=== PATIENT | female | born 1945 | race Caucasian/White ===

== ENCOUNTER 2016-03-20 12:02 | Inpatient (IN) | payer OTHER, BC ==
[2016-03-20 12:39] LABS: % IMMATURE GRANULYOCYTES 0.3 % (0.0-1.1); ABSOLUTE IMMATURE GRANULOCYTES 0.03 10^3/uL (0.00-0.10); ADD DIFF? NO; ADD MORPH? NO; ADD SCAN? NO; ATYPICAL LYMPHOCYTE FLAG 0 (0-99); FRAGMENT RBC FLAG 0 (0-99); HEMATOCRIT 34.8 % (38.0-47.0); HEMOGLOBIN 11.9 g/dL (12.6-16.3); LEFT SHIFT FLG 0 (0-99); LIPEMIA HEMOLYSIS FLAG 90 (0-99); MEAN CELL HEMOGLOBIN 30.7 pg (27.9-34.1); MEAN CELL HEMOGLOBIN CONCENTR. 34.2 g/dL (32.4-36.7); MEAN CELL VOLUME 89.7 fL (81.5-99.8); MEAN PLATELET VOLUME 9.7 fL (8.7-11.7); PLATELET CLUMPS FLAG 10 (0-99); PLATELET COUNT 289 10^3/uL (150-400); RED BLOOD CELL COUNT 3.88 10^6/uL (4.18-5.33); RED CELL DISTRIBUTION WIDTH 12.8 % (11.5-15.2)
--- NOTE | 2016-03-20 12:52 | EDPHY ---
H & P Stated Complaint: sob Time Seen by Provider: 03/20/16 12:38 HPI/ROS: CHIEF COMPLAINT: Cough HISTORY OF PRESENT ILLNESS: The patient is a 70 year old female presenting with persistent cough for the past 12 days. The patient was in [place] and developed sore throat and cough. Upon returning her coughing has worsened. She has a productive cough with yellow sputum. Over the past 2 days she's been febrile with temperature reaching 103. Yesterday she developed shortness of breath. She reports chest pain secondary to cough. She was seen at Urgent Care earlier today , O2 saturation on room air was 85%. The patient received a flu shot this year. No vomiting, normal appetite, no pleruitic pain. Complains of generalized weakness and fatigue. REVIEW OF SYSTEMS: Aside from elements discussed in the HPI, a comprehensive 10-point review of systems was reviewed and is negative. PAST MEDICAL HISTORY: Patient reports bronchiectasis. SOCIAL HISTORY: and physician friend at bedside. VITAL SIGNS: Reviewed by me. Temp 39.0 Sat 92% on 4 liters. GENERAL: Well-developed, well-nourished, diaphoretic. HEENT: Atraumatic. Eyes: No icterus, no injection. Mouth: slightly dry mucous membranes. No erythema or lesions. Neck: supple with no adenopathy. LUNGS: Left upper lobe crackles. Right sided rhonchi and crackles. Wheezes throughout. CARDIAC: Tachycardic, no rubs, murmurs or gallops. ABDOMEN: Soft, nontender, nondistended, bowel sounds normal. BACK: No CVA tenderness. EXTREMITIES: No trauma. No edema. Range of motion is normal throughout. NEURO: Alert and oriented, grossly nonfocal. SKIN: Warm and dry, no rash. PSYCHIATRIC: Normal mentation, no agitation. Portions of this note were transcribed by a medical researcher. I personally performed a history, physical exam, medical decision making, and confirmed accuracy of information the transcribed note. Source: Patient - Personal History Current Tetanus Diphtheria and Acellular Pertussis (TDAP): Yes - Medical/Surgical History Hx Asthma: No Hx Chronic Respiratory Disease: No Hx Diabetes: No Hx Cardiac Disease: No Hx Renal Disease: No Hx Cirrhosis: No Hx Alcoholism: No Hx HIV/AIDS: No Hx Splenectomy or Spleen Trauma: No - Social History Smoking Status: Never smoked Constitutional: Initial Vital Signs Temperature (C) 39 C H 03/20/16 12:18 Heart Rate 99 03/20/16 12:18 Respiratory Rate 20 03/20/16 12:18 Blood Pressure 124/76 H 03/20/16 12:18 O2 Sat (%) 92 03/20/16 12:18 O2 Delivery Mode Nasal Cannula O2 (L/minute) 3 Allergies/Adverse Reactions: No Known Drug Allergies Allergy (Verified 03/20/16 12:18) Home Medications: Medication Instructions Recorded Benzonatate [Tessalon Pearles (RX)] 100 mg PO DAILY PRN 03/20/16 Gabapentin [Neurontin 300 MG (*)] 600 mg PO HS PRN 03/20/16 HYDROcodone/HOMATROPINE HYCODA 1 tsp PO Q4-6PRN PRN 03/20/16 [Hycodan Syrup (*)] Herbals/Supplements -Info Only 1 ea PO DAILY 03/20/16 Ibuprofen [Motrin (*)] 200 mg PO DAILY PRN 03/20/16 Zolpidem Tartrate [Ambien 5MG (*)] 5 mg PO HS PRN 03/20/16 Medical Decision Making - Diagnostics Imaging: Study: X-ray of the chest was obtained. Results: Multifocal consolidation, most prominent in the right middle lobe, consistent with pneumonia. Images were interpreted by the radiologist, Dr. Mendoza. I viewed the images myself on the PACS system. ED Course/Re-evaluation: Severe Sepsis Note The patient presents to the ED with pneumonia identified as an acute infection. The patient did have evidence of end-organ dysfunction and met criteria for severe sepsis. This condition was identified by myself at 12:52pm. The patient s vital signs are BP 124/76, HR 99, RR 20, SaO2 85 on RA, temp 39. The patient has a venous lactic acid performed within 3 hours of the identification of severe sepsis which was found to be 1.5. The patient has blood cultures drawn and received Ceftriaxone and Azithromycin IV, per the severe sepsis treatment protocol. 70 year old with respiratory symptoms for 12 days, worse over past 3-4 days. Febrile to 103. Hypoxic to 85% on room air on arrival. Received 30cc/kg bolus, O2 by n/c. Antibiotics started. Lactic acid 1.5 Admit to hospital medicine. No old cxr in our system; patient reports hx of bronchiectasis. Differential Diagnosis: Differential diagnosis for the patient's cough and shortness of breath was considered including but not limited to viral versus bacterial bronchitis, asthma, COPD, pulmonary emboli, upper respiratory infection, lower respiratory infection, and bronchospasm. Consult/Admit Bed Type: Meli Burrell - Data Points Laboratory Results: Laboratory Results 03/20/16 12:06 03/20/16 12:06 Microbiology Results: MICROBIOLOGY 03/20/16 13:30 Blood Blood Culture - Preliminary Medications Given: Discontinued Medications Azithromycin 500 mg/ Dextrose 255 mls @ 255 mls/hr IV EDNOW ONE PRN Reason: Protocol Stop: 03/20/16 15:22 Last Admin: 03/20/16 17:24 Dose: 255 mls Ceftriaxone Sodium 2 gm/ (Dextrose) 50 mls @ 100 mls/hr IV EDNOW ONE PRN Reason: Protocol Stop: 03/20/16 14:51 Last Admin: 03/20/16 16:36 Dose: 50 mls Sodium Chloride (Ns *For Sepsis Order Set Only*) 1,973 ml IV EDNOW ONE Stop: 03/20/16 13:08 Last Admin: 03/20/16 13:14 Dose: 1,973 ml Departure - Departure Disposition: [facility] Inpatient Acute Clinical Impression: Pneumonia, Sepsis Condition: Fair Report Scribed for: Melia Ramos Report Scribed by: Alejandrina Meza Date of Report: 03/20/16 Time of Report: 12:52
[2016-03-20] MEDS ORDERED: NS 1,000 ML BAG *FOR SEPSIS ORDER SET ONLY IV ONE (13:07)
[2016-03-20 13:27] LABS: ANION GAP 9 mEq/L (8-16); CALCIUM 8.1 mg/dL (8.5-10.4); CARBON DIOXIDE 26 mEq/l (22-31); CHLORIDE 98 mEq/L (97-110); CREATININE 0.7 mg/dL (0.6-1.0); GLOMERULAR FILTRATION RATE > 60; GLUCOSE 140 mg/dL (70-100); POTASSIUM 3.5 mEq/L (3.5-5.2); SODIUM 133 mEq/L (134-144)
[2016-03-20 13:35] LABS: APTT 30.3 SEC (23.0-38.0); INR 1.15 (0.83-1.16); PROTIME(PATIENT) 14.7 SEC (12.0-15.0)
[2016-03-20 13:49] LABS: BILIRUBIN,TOTAL 0.7 mg/dL (0.1-1.4)
[2016-03-20] MEDS ORDERED: cefTRIAXone 2 GM in D5W 50 ML IV ONE (14:22)
[2016-03-20] MEDS ORDERED: AZITHROMYCIN IV 500 MG in D5W 250 ML IV ONE (14:23)
--- NOTE | 2016-03-20 14:33 | DX ---
PA and lateral chest History: Cough, cold, possible pneumonia. Comparison: None available. Findings: There is diffuse peribronchial thickening with patchy consolidation in the lingula and rig ht upper lobe and denser consolidation in the right middle lobe. Heart size is normal. S-shaped curva ture of the spine is noted. Impression: Multifocal consolidation, most prominent in the right middle lobe, consistent with pneum onia. Radiographic follow-up is recommended to resolution.
[2016-03-20 14:59] LABS: COLOR PALE YELLOW; LEUKOCYTE ESTERASE,URINE NEGATIVE (NEGATIVE); NITRITE,URINE NEGATIVE (NEGATIVE)
[2016-03-20 15:12] LABS: BACTERIA TRACE /hpf (NONE SEEN)
[2016-03-20 15:13] LABS: WBC,URINE NONE SEEN /hpf (0-3)
[2016-03-20] MEDS ORDERED: ONDANSETRON DISINTEGRATING 4 MG TAB PO PRN (15:43)
[2016-03-20] MEDS ORDERED: oxyCODONE IR 5 MG TAB PO PRN (15:43)
[2016-03-20] MEDS ORDERED: ALBUTEROL 3 ML DEYVIAL IH PRN (15:43)
[2016-03-20] MEDS ORDERED: PROMETHAZINE HCL 25 MG/ML INJ IVP PRN (15:43)
[2016-03-20] MEDS ORDERED: ONDANSETRON 4 MG/2 ML VIAL IVP PRN (15:43)
[2016-03-20] MEDS ORDERED: IBUPROFEN 200 MG TAB PO PRN (15:45)
[2016-03-20] MEDS ORDERED: GABAPENTIN 300 MG CAP PO PRN (15:45)
[2016-03-20] MEDS: HYDROCODONE/HOMATROPINE HYCODAN 5 ML UDL PO PRN ×2 (16:35→22:24)
[2016-03-20] MEDS: NS 1,000 ML IV SCH (16:35)
[2016-03-20] MEDS: BENZONATATE 100 MG CAP PO PRN (17:35)
[2016-03-20] MEDS: ACETYLCYSTEINE 10% 30 ML VIAL IH SCH ×2 (18:09→22:05)
[2016-03-20] MEDS: IPRATROPIUM/ALBUTEROL 3 ML DEYVIAL IH SCH ×2 (18:11→22:05)
[2016-03-20] MEDS: HYDROCODONE/APAP 5/325 TAB PO PRN ×2 (19:22→22:24)
[2016-03-20] MEDS: CEPACOL LOZENGE PO PRN ×2 (19:25→22:25)
--- NOTE | 2016-03-20 21:37 | GHP ---
[f rep st] HISTORY AND PHYSICAL DATE OF ADMISSION: 03/20/2016 CHIEF COMPLAINT: Cough and fevers. HISTORY: This is a 70-year-old female who has a past medical history that includes remote issues wit h bronchiectasis following a respiratory infection obtained in [place] who presents with 12 days of upp er respiratory symptoms that have been progressive over the last several days. The patient is visiti chau here from [place], [place]. She is staying with a friend who is a physician. She has been dealin g with a cough productive of yellow sputum with shortness of breath with exertion. Over the last 2-3 days, she has also developed fever as high as 103.5 noted at home. She has not had similar issues i n the past. She does not have any chronic respiratory issues. She has been around other people who have had similar issues but not quite as severe. PAST MEDICAL HISTORY: None. SOCIAL HISTORY: Patient is a never smoker. She is and is accompanied here by her . She is living in [place], [place] and is accompanied here by a physician friend with whom she is stay ing with in [place]. PAST SURGICAL HISTORY: Meniscectomy and lung biopsy. REVIEW OF SYSTEMS: 10-point review of systems obtained, negative except as per HPI. MEDICATIONS: At home include: 1. Gabapentin. 2. Hycodan syrup. 3. Tessalon Perles. 4. Ibuprofen. 5. Zolpidem. ALLERGIES: No known drug allergies. PHYSICAL EXAMINATION: VITAL SIGNS: BP 137/79, heart rate 90, respiratory rate 18, O2 sat 93% on 1-1 /2 L, temperature 37.5 with a T-max of 39. She was noted to be in the low 80s on room air on initial arrival to the ER. IMAGING STUDIES: Chest x-ray. This was reviewed and interpreted independently by myself and shows m ultifocal consolidation most prominent in the right middle lobe consistent with pneumonia. LABORATORY STUDIES: White blood cell count of 11, hematocrit of 34.8, platelets of 289. Lactic acid is 1.5. Chemistry notable for a glucose of 140 and a sodium of 133. UA was unremarkable. Influenza swab was negative. ASSESSMENT AND PLAN: This is a 70-year-old female, no significant past medical history, presenting w ith community-acquired pneumonia. 1. Community-acquired pneumonia, relatively severe, with associated hypoxic respiratory failure. Sh e does have evidence of sepsis. She has been started on ceftriaxone and azithromycin which will be c ontinued for now. Blood cultures have been obtained and are pending. We will also obtain sputum cul tures as well as Legionella and Streptococcus pneumoniae urinary antigens. 2. Acute hypoxic respiratory failure in the setting of above. She is now saturating well on 2-3 L o f oxygen. She does not have any underlying lung issues, though she did have an issue with a severe r espiratory infection status post a trip to [facility] many years ago for which she underwent a lung biopsy . Treatment is as per above. 3. Sepsis. Patient with leukocytosis, fever, and tachycardia in the setting of pneumonia. She does not have evidence of severe sepsis or end-organ dysfunction. Treatment is as per above. 4. Anemia. The patient has mild anemia that we will trend while inhouse. Likely can defer this to the outpatient setting, and we recommend colonoscopy if she has not had one in the recent past. 5. Hyponatremia, mild and likely secondary to hypovolemic hyponatremia in the setting of being ill f or many days. Will repeat BMP in the morning. 6. Hyperglycemia, likely stress response in the setting of acute infectious process. Again, we will repeat a BMP in the morning. DISPOSITION: 1. Inpatient status. She does have high risk presenting issues requiring inpatient stay and IV anti biotics. 2. Full code. 3. Patient is new to my care. Old records are reviewed and summarized as per HPI and past medical h istory. Care plan reviewed with the ER physician, including plans for admission. Further history ob tained from patient's and physician friend present at bedside. /[id number]/MODL
[2016-03-20] MEDS: ZOLPIDEM TARTRATE 5 MG TAB PO PRN (22:24)
[2016-03-20] MEDS: ACETAMINOPHEN 325 MG TAB PO PRN (23:54)
[2016-03-21] MEDS: HYDROCODONE/APAP 5/325 TAB PO PRN (03:59)
[2016-03-21] MEDS: HYDROCODONE/HOMATROPINE HYCODAN 5 ML UDL PO PRN (04:00)
[2016-03-21 04:45] LABS: ANION GAP 9 mEq/L (8-16); CALCIUM 7.7 mg/dL (8.5-10.4); CARBON DIOXIDE 25 mEq/l (22-31); CHLORIDE 104 mEq/L (97-110); CREATININE 0.6 mg/dL (0.6-1.0); GLOMERULAR FILTRATION RATE > 60; GLUCOSE 104 mg/dL (70-100); POTASSIUM 3.9 mEq/L (3.5-5.2); SODIUM 138 mEq/L (134-144)
[2016-03-21 05:02] LABS: % IMMATURE GRANULYOCYTES 0.4 % (0.0-1.1); ABSOLUTE IMMATURE GRANULOCYTES 0.04 10^3/uL (0.00-0.10); ADD DIFF? NO; ADD MORPH? NO; ADD SCAN? NO; ATYPICAL LYMPHOCYTE FLAG 0 (0-99); FRAGMENT RBC FLAG 10 (0-99); HEMATOCRIT 31.4 % (38.0-47.0); HEMOGLOBIN 10.5 g/dL (12.6-16.3); LEFT SHIFT FLG 0 (0-99); LIPEMIA HEMOLYSIS FLAG 80 (0-99); MEAN CELL HEMOGLOBIN CONCENTR. 33.4 g/dL (32.4-36.7); MEAN CELL VOLUME 92.6 fL (81.5-99.8); MEAN PLATELET VOLUME 9.9 fL (8.7-11.7); PLATELET CLUMPS FLAG 10 (0-99); PLATELET COUNT 280 10^3/uL (150-400); RED BLOOD CELL COUNT 3.39 10^6/uL (4.18-5.33); RED CELL DISTRIBUTION WIDTH 13.2 % (11.5-15.2)
[2016-03-21] MEDS: ACETYLCYSTEINE 10% 30 ML VIAL IH SCH ×4 (06:01→21:49)
[2016-03-21] MEDS: IPRATROPIUM/ALBUTEROL 3 ML DEYVIAL IH SCH ×4 (06:01→21:49)
[2016-03-21] MEDS: NS 1,000 ML IV SCH ×2 (06:21→15:02)
[2016-03-21] MEDS: ACETAMINOPHEN 325 MG TAB PO PRN ×3 (09:06→20:21)
[2016-03-21] MEDS: AZITHROMYCIN IV 500 MG in D5W 250 ML IV SCH (09:06)
[2016-03-21] MEDS: ENOXAPARIN 40 MG/0.4 ML SYR SC SCH (09:07)
[2016-03-21] MEDS: BENZONATATE 100 MG CAP PO PRN (15:46)
--- NOTE | 2016-03-21 18:46 | HOSPPROG ---
Hospitalist Progress Note Assessment/Plan: DIAGNOSIS: # ACUTE ON CHRONIC RESPIRATORY FAILURE # ACUTE COMMUNITY-ACQUIRED PNEUMONIA # ACUTE MILD SEPSIS WITHOUT ANY EVIDENCE OF END-ORGAN DAMAGE PLANS: -Continue current antibiotics -continue bronchodilators -continue general supportive care -increase activity as able -DT prophylaxis measures in place SUBJECTIVE: The patient notices little difference in her symptoms overall so far. She does notice some decrease in cough and malaise. She is perhaps slightly less short of breath. OBJECTIVE Vitals reviewed: Continues have fevers but the vital signs are otherwise stable in normal range Exam: alert oriented Looks fatigued overall with mild respiratory distress skin warm dry color ok lungs diffuse wheeze with some rales at the right lower lobe posteriorly heart regular abd soft nondistended nontender, bowel sounds present limbs warm, no edema iv site ok Objective: Vital Signs Temp Pulse Resp BP Pulse Ox 38.8 C H 86 20 130/71 H 96 03/21/16 15:34 03/21/16 15:34 03/21/16 15:34 03/21/16 15:34 03/21/16 15:34 Microbiology 03/20/16 22:43 - Final Sputum, Expectorated Sputum Culture - Final Laboratory Results 03/21/16 03:40 03/21/16 03:40 03/20/16 03/21/16 03/22/16 06:59 06:59 06:59 Intake Total 5106 400 Output Total 300 700 Balance 4806 -300 PT 14.7 SEC (12.0-15.0) 03/20/16 12:00 INR 1.15 (0.83-1.16) 03/20/16 12:00 ICD10 Worksheet Patient Problems: Problems Problem Status Diagnosed Pneumonia Acute
[2016-03-22] MEDS: HYDROCODONE/HOMATROPINE HYCODAN 5 ML UDL PO PRN ×2 (04:28→21:39)
[2016-03-22] MEDS: NS 1,000 ML IV SCH (04:29)
[2016-03-22] MEDS: ACETYLCYSTEINE 10% 30 ML VIAL IH SCH ×4 (06:19→20:17)
[2016-03-22] MEDS: IPRATROPIUM/ALBUTEROL 3 ML DEYVIAL IH SCH ×4 (06:19→20:17)
[2016-03-22] MEDS: AZITHROMYCIN IV 500 MG in D5W 250 ML IV SCH (07:50)
[2016-03-22] MEDS: ENOXAPARIN 40 MG/0.4 ML SYR SC SCH (07:53)
[2016-03-22] MEDS: ACETAMINOPHEN 325 MG TAB PO PRN (13:19)
--- NOTE | 2016-03-22 17:40 | HOSPPROG ---
Hospitalist Progress Note Assessment/Plan: DIAGNOSIS: # ACUTE ON CHRONIC RESPIRATORY FAILURE, SUSPECT COPD # ACUTE COMMUNITY-ACQUIRED PNEUMONIA # ACUTE MILD SEPSIS WITHOUT ANY EVIDENCE OF END-ORGAN DAMAGE PLANS: -Continue current antibiotics, follow cultures -continue bronchodilators -continue general supportive care -increase activity as able -DT prophylaxis measures in place SUBJECTIVE: Today less cough and better energy. She is eating little bit better. She is a little bit less short of breath but still requiring oxygen and gets very short of breath with minimal activity OBJECTIVE Vitals reviewed: Continues have fevers but not as high as yesterday, other vitals stable Exam: alert oriented Looks fatigued overall with mild respiratory distress skin warm dry color ok lungs unchanged, diffuse wheeze with some rales at the right lower lobe posteriorly heart regular abd soft nondistended nontender, bowel sounds present limbs warm, no edema iv site ok Objective: Vital Signs Temp Pulse Resp BP Pulse Ox 38.1 C 81 20 130/72 H 93 03/22/16 12:00 03/22/16 16:26 03/22/16 12:00 03/22/16 12:00 03/22/16 16:26 Microbiology 03/21/16 12:18 - Final Sputum, Expectorated Laboratory Results 03/21/16 03:40 03/21/16 03:40 03/21/16 03/22/16 03/23/16 06:59 06:59 06:59 Intake Total 5106 2369 Output Total 300 1550 300 Balance 4806 819 -300 PT 14.7 SEC (12.0-15.0) 03/20/16 12:00 INR 1.15 (0.83-1.16) 03/20/16 12:00 ICD10 Worksheet Patient Problems: Problems Problem Status Diagnosed Pneumonia Acute
[2016-03-22] MEDS: GABAPENTIN 600 MG PO PRN (21:31)
[2016-03-23] MEDS: ACETYLCYSTEINE 10% 30 ML VIAL IH SCH ×4 (05:07→21:17)
[2016-03-23] MEDS: IPRATROPIUM/ALBUTEROL 3 ML DEYVIAL IH SCH ×4 (05:07→21:17)
[2016-03-23 06:09] LABS: % IMMATURE GRANULYOCYTES 0.6 % (0.0-1.1); ABSOLUTE IMMATURE GRANULOCYTES 0.05 10^3/uL (0.00-0.10); ADD DIFF? NO; ADD MORPH? NO; ADD SCAN? NO; ATYPICAL LYMPHOCYTE FLAG 70 (0-99); FRAGMENT RBC FLAG 0 (0-99); HEMOGLOBIN 10.6 g/dL (12.6-16.3); LEFT SHIFT FLG 0 (0-99); LIPEMIA HEMOLYSIS FLAG 90 (0-99); MEAN CELL HEMOGLOBIN 31.5 pg (27.9-34.1); MEAN CELL HEMOGLOBIN CONCENTR. 34.2 g/dL (32.4-36.7); MEAN CELL VOLUME 92.3 fL (81.5-99.8); MEAN PLATELET VOLUME 9.6 fL (8.7-11.7); PLATELET CLUMPS FLAG 0 (0-99); PLATELET COUNT 305 10^3/uL (150-400); RED BLOOD CELL COUNT 3.36 10^6/uL (4.18-5.33); RED CELL DISTRIBUTION WIDTH 13.2 % (11.5-15.2)
[2016-03-23] MEDS: AZITHROMYCIN IV 500 MG in D5W 250 ML IV SCH (08:16)
[2016-03-23] MEDS: ENOXAPARIN 40 MG/0.4 ML SYR SC SCH (09:54)
--- NOTE | 2016-03-23 10:57 | HOSPPROG ---
Hospitalist Progress Note Assessment/Plan: DIAGNOSIS: # ACUTE ON CHRONIC RESPIRATORY FAILURE, SUSPECT COPD # ACUTE COMMUNITY-ACQUIRED PNEUMONIA # ACUTE MILD SEPSIS WITHOUT ANY EVIDENCE OF END-ORGAN DAMAGE PLANS: -Continue current antibiotics, follow cultures -continue bronchodilators -continue general supportive care -increase activity as able -DT prophylaxis measures in place -check stool for C difficile today SUBJECTIVE: Feels little better overall today, fever symptoms resolved Less cough, slightly better appetite, still very weak with ambulation and some dyspnea they are Has been having frequent loose stools over the past 24 hours OBJECTIVE Vitals reviewed: No more fever, other vitals stable remains on 3 L nasal cannula oxygen at rest Exam: alert oriented Looks fatigued overall with mild respiratory distress skin warm dry color ok lungs better air movement and significantly less rales heart regular abd soft nondistended nontender, bowel sounds present limbs warm, no edema iv site ok Objective: Vital Signs Temp Pulse Resp BP Pulse Ox 36.8 C 84 20 124/75 H 94 03/23/16 07:23 03/23/16 07:23 03/23/16 07:23 03/23/16 07:23 03/23/16 07:23 Microbiology 03/21/16 12:18 - Final Sputum, Expectorated Sputum Culture - Final [facility] Laboratory Results 03/23/16 05:54 03/21/16 03:40 03/22/16 03/23/16 03/24/16 06:59 06:59 06:59 Intake Total 2369 1740 Output Total 1550 300 Balance 819 1440 PT 14.7 SEC (12.0-15.0) 03/20/16 12:00 INR 1.15 (0.83-1.16) 03/20/16 12:00 ICD10 Worksheet Patient Problems: Problems Problem Status Diagnosed Pneumonia Acute Sepsis Acute
[2016-03-23] MEDS: ACETAMINOPHEN 325 MG TAB PO PRN (14:56)
[2016-03-23] MEDS: HYDROCODONE/HOMATROPINE HYCODAN 5 ML UDL PO PRN ×2 (20:39→23:41)
[2016-03-23] MEDS: GABAPENTIN 600 MG PO PRN (21:35)
[2016-03-23] MEDS: BENZONATATE 100 MG CAP PO PRN (23:42)
[2016-03-23] MEDS: ZOLPIDEM TARTRATE 5 MG TAB PO PRN (23:45)
[2016-03-24] MEDS: ACETAMINOPHEN 325 MG TAB PO PRN ×2 (04:41→15:48)
[2016-03-24] MEDS: IPRATROPIUM/ALBUTEROL 3 ML DEYVIAL IH SCH ×4 (06:27→21:35)
[2016-03-24] MEDS: ACETYLCYSTEINE 10% 30 ML VIAL IH SCH ×4 (06:28→21:40)
[2016-03-24] MEDS: AZITHROMYCIN IV 500 MG in D5W 250 ML IV SCH (08:43)
[2016-03-24] MEDS: ENOXAPARIN 40 MG/0.4 ML SYR SC SCH (08:43)
[2016-03-24] MEDS ORDERED: predniSONE 20 MG TAB PO ONE (11:47)
--- NOTE | 2016-03-24 18:18 | HOSPPROG ---
Hospitalist Progress Note Assessment/Plan: DIAGNOSIS: # ACUTE ON CHRONIC RESPIRATORY FAILURE, SUSPECT COPD # ACUTE COMMUNITY-ACQUIRED PNEUMONIA # ACUTE MILD SEPSIS WITHOUT ANY EVIDENCE OF END-ORGAN DAMAGE # CHRONIC SLEEP APNEA ON CPAP PLANS: -She will have family members bring her CPAP and will have her use that here -Will add some prednisone -She has not been using her flutter valve device and I have encouraged her to use that at least hourly -Continue current antibiotics, follow cultures -continue bronchodilators -continue general supportive care -increase activity as able -DT prophylaxis measures in place SUBJECTIVE: feels more fatigued today, not really feeling any better than yesterday overall perhaps slightly worse No worsening of cough or dyspnea She is having chills overnight she now tells me that she has a long history of sleep apnea and uses CPAP at home but has not used her CPAP for 3 weeks; she apparently does have her CPAP with her on this trip OBJECTIVE Vitals reviewed: had fever again during the night, other vitals stable remains on 3 L nasal cannula oxygen at rest Exam: alert oriented Looks fatigued overall with mild respiratory distress skin warm dry color ok lungs better air movement and significantly less rales heart regular abd soft nondistended nontender, bowel sounds present limbs warm, no edema iv site ok C diff titers negative Cultures remain negative Objective: Vital Signs Temp Pulse Resp BP Pulse Ox 37.6 C 101 H 16 138/80 H 92 03/24/16 17:08 03/24/16 17:08 03/24/16 17:08 03/24/16 17:08 03/24/16 17:08 Laboratory Results 03/23/16 05:54 03/21/16 03:40 03/23/16 03/24/16 03/25/16 06:59 06:59 06:59 Intake Total 1740 3700 300 Output Total 300 Balance 1440 3700 300 PT 14.7 SEC (12.0-15.0) 03/20/16 12:00 INR 1.15 (0.83-1.16) 03/20/16 12:00 ICD10 Worksheet Patient Problems: Problems Problem Status Diagnosed Pneumonia Acute Sepsis Acute
[2016-03-24] MEDS: ZOLPIDEM TARTRATE 5 MG TAB PO PRN (22:13)
[2016-03-24] MEDS: HYDROCODONE/HOMATROPINE HYCODAN 5 ML UDL PO PRN (22:13)
[2016-03-24] MEDS: GABAPENTIN 600 MG PO PRN (22:19)
[2016-03-25] MEDS ORDERED: IPRATROPIUM/ALBUTEROL 3 ML DEYVIAL IH PRN (01:03)
[2016-03-25 08:59] VITALS: RESP 16
[2016-03-25] MEDS ORDERED: predniSONE 20 MG TAB PO SCH (09:00)
[2016-03-25] MEDS: ENOXAPARIN 40 MG/0.4 ML SYR SC SCH (09:02)
[2016-03-25] MEDS: AZITHROMYCIN IV 500 MG in D5W 250 ML IV SCH (09:02)
[2016-03-25 16:18] VITALS: BP 129/90; PULSE 76; TEMP 98.4; O2SAT 93
--- NOTE | 2016-03-25 19:12 | PDDCSUM ---
Discharge Summary Discharge Summary: DISCHARGE SUMMARY NOTE DISCHARGE DIAGNOSES: -Acute respiratory failure on chronic hypoxemic respiratory failure -Acute community-acquired pneumonia -Suspected as exacerbation of COPD -1st acute mild sepsis -Obstructive sleep apnea -Chronic bronchiectasis HOSPITAL COURSE SUMMARY: This patient with chronic lung disease multiple etiologies came in with symptoms of acute pneumonia had mild sepsis with acute hypoxemic respiratory failure. She had no evidence of other organ failure. She was admitted the hospital and treated with fluid resuscitation, antibiotics, bronchodilators and steroids. She had ongoing use of her usual CPAP here. Her course was 1 of gradual resolution of her presenting symptoms. By this time she still requiring 3 L of oxygen but is much less short of breath, ambulating much more easily, eating well. She has much improved lung exam, no fever. There been no complications. Cultures have been negative. She has been treated here with empiric antibiotics and will continue 2 more days of empiric antibiotics as an outpatient. She does require home oxygen at this time along with her ongoing CPAP and is on a tapering dose of prednisone. I have added also inhaled bronchodilators with albuterol and Atrovent. She is traveling here from [place]. She will be staying with a local friend who is actually retired physician for the next 2 weeks and then gradually traveling back to [place] where she lives. She will need to have her oxygen levels checked for heading back to [place] where her home was 2000 feet higher than here [place]. MEDICATION CHANGES: Addition of Levaquin, Atrovent, albuterol, tapering prednisone and home oxygen FOLLOW-UP PLAN: Home oxygen therapy She will follow up with her primary care physician upon return to [place], however will return here if she has further acute issues in the meantime. Greater than 35 minutes bedside and care coordination time today
== END 2016-03-25 19:00 | disposition home or self-care (01) | DRG 871 ==
LOC: EDUNIT# → F1N 15:43
PROVIDERS: ADMIT Internal Medicine; ATTEND Internal Medicine
DX: A41.9 Sepsis, unspecified organism (principal); J18.9 Pneumonia, unspecified organism; R65.20 Severe sepsis without septic shock; J96.21 Acute and chronic respiratory failure with hypoxia; J44.1 Chronic obstructive pulmonary disease with (acute) exacerbation; J47.9 Bronchiectasis, uncomplicated; E87.1 Hypo-osmolality and hyponatremia; G47.33 Obstructive sleep apnea (adult) (pediatric)
CPT/HCPCS: 87449-90; 97161-GP; G8978-GP-CJ; G8979-GP-CI; J0456; J0696; J1650; J2405

== ENCOUNTER 2018-04-08 05:42 | Inpatient (IN) | payer OTHER, BC ==
[2018-04-08] MEDS ORDERED: TRANEXAMIC ACID 3,000 MG in NS (SYRINGE) 50 ML IRR ONE (06:00)
[2018-04-08] MEDS ORDERED: ROPIVACAINE 0.2% 80 MG, EPINEPHrine 0.2 MG, KETOROLAC TROMETHAMINE 30 MG in SYRINGE 0 ML IU ONE (06:00)
[2018-04-08] MEDS ORDERED: ACETAMINOPHEN 325 MG TAB PO ONE (06:02)
[2018-04-08] MEDS ORDERED: ceFAZolin 2 GM/DEXTROSE 100 ML IV ONE (06:02)
[2018-04-08] MEDS ORDERED: FAMOTIDINE 20 MG TAB PO ONE (06:02)
[2018-04-08] MEDS ORDERED: DEXAMETHASONE 4 MG/ML VIAL IVP ONE (06:02)
[2018-04-08] MEDS ORDERED: LR 1,000 ML IV ONE (06:03)
[2018-04-08] MEDS ORDERED: ceFAZolin 1 GM/5 ML SYR ONE (06:27)
[2018-04-08] MEDS ORDERED: PROMETHAZINE HCL 25 MG/ML INJ IVP PRN ×2 (07:04→09:49)
[2018-04-08] MEDS ORDERED: HYDROmorphONE/DILAUDID 2 MG/ML INJ IVP PRN (07:04)
[2018-04-08] MEDS ORDERED: fentaNYL 100 MCG/2 ML INJ IVP PRN (07:04)
[2018-04-08] MEDS ORDERED: NALOXONE HCL 0.4 MG/ML INJ IVP PRN ×2 (07:04)
[2018-04-08] MEDS ORDERED: ALBUTEROL 3 ML DEYVIAL IH PRN (07:04)
[2018-04-08] MEDS ORDERED: MIDAZOLAM 2 MG/2 ML VIAL IVP ONE (07:04)
[2018-04-08] MEDS ORDERED: ACETAMINOPHEN 500 MG TAB PO PRN (07:04)
[2018-04-08] MEDS ORDERED: ONDANSETRON 4 MG/2 ML VIAL IVP PRN ×2 (07:04→09:49)
[2018-04-08] MEDS ORDERED: oxyCODONE IR 5 MG TAB PO PRN (07:04)
--- NOTE | 2018-04-08 07:08 | PDANEPAE ---
ANE History of Present Illness L Total Knee ANE Past Medical History - Cardiovascular History Hx Hypertension: No Hx Arrhythmias: No Hx Chest Pain: No Hx Coronary Artery / Peripheral Vascular Disease: No Hx CHF / Valvular Disease: No Hx Palpitations: No Cardiovascular History Comment: RUNS LOW BP. PALPITATIONS - 2 EPISODES 10-12 YRS AGO - NO SXS SINCE - Pulmonary History Hx COPD: No Hx Asthma/Reactive Airway Disease: No Hx Recent Upper Respiratory Infection: No Hx Oxygen in Use at Home: No Hx Sleep Apnea: Yes Sleep Apnea Screening Result - Last Documented: Positive Pulmonary History Comment: MILD BRONCHIECTASIS. PNEUMONIA 2 YRS AGO - ASYMPTOMATIC SINCE - Neurologic History Hx Cerebrovascular Accident: No Hx Seizures: No Hx Dementia: No - Endocrine History Hx Diabetes: No - Renal History Hx Renal Disorders: No Renal History Comment: OCCAS BLADDER INF - Liver History Hx Hepatic Disorders: No - Neurological & Psychiatric Hx Hx Neurological and Psychiatric Disorders: No - Cancer History Hx Cancer: No Cancer History Comment: SQUAMOUS CELLS REMOVED - Congenital Disorder History Hx Congenital Disorders: No - GI History Hx Gastrointestinal Disorders: No - Other Health History Other Health History: NEG - Chronic Pain History Chronic Pain: Yes (L KNEE) - Surgical History Prior Surgeries: TONSILLECTOMY. COLONOSCOPY. MENISCUS L KNEE ANE Review of Systems Review of Systems: - Exercise capacity METS (RN): 5 METS ANE Patient History - Allergies Allergies/Adverse Reactions: No Known Drug Allergies Allergy (Verified 03/20/16 12:18) - Home Medications Home Medications: Gabapentin [Neurontin 300 MG (*)] 600 mg PO HS 03/20/16 [Last Taken 04/07/18] Zolpidem Tartrate [Ambien 5MG (*)] 2.5 mg PO HS PRN 03/20/16 [Last Taken ] Multivitamin 04/08/18 [Last Taken 1 Week Ago ~04/01/18] Vitamin E 04/08/18 [Last Taken 1 Week Ago ~04/01/18] - NPO status NPO Since - Liquids (Date): 04/08/18 NPO Since - Liquids (Time): 13:30 NPO Since - Solids (Date): 04/07/18 NPO Since - Solids (Time): 20:00 - Smoking Hx Smoking Status: Never smoked ANE Labs/Vital Signs - Vital Signs Blood Pressure: 105/71 Heart Rate: 70 Respiratory Rate: 18 O2 Sat (%): 92 Height: 165.1 cm Weight: 65.771 kg ANE Physical Exam - Airway Neck exam: FROM Mallampati Score: Class 2 Mouth exam: normal dental/mouth exam - Pulmonary Pulmonary: clear to auscultation - Cardiovascular Cardiovascular: regular rate and rhythym - ASA Status ASA Status: II ANE Anesthesia Plan Anesthesia Plan: MAC, spinal Regional Anesthesia: adductor canal FNB
--- NOTE | 2018-04-08 07:10 | PDHPUP ---
History & Physical Update H&P update statement: This history and physical update is based on an assessment of the patient which was completed after admission or registration (within 24 hours), but prior to the surgery/procedure. H&P update: H&P reviewed & patient examined, no change in patient's condition since H&P completed
[2018-04-08] MEDS ORDERED: PROPOFOL/EMULSION 500 MG/50 ML BOTTLE IV ONE ×2 (07:12→08:44)
[2018-04-08] MEDS ORDERED: ONDANSETRON 4 MG/2 ML VIAL ONE (07:51)
[2018-04-08] MEDS ORDERED: DEXAMETHASONE 4 MG/ML VIAL ONE (07:51)
[2018-04-08] MEDS ORDERED: TRANEXAMIC ACID 3,000 MG/50 ML BAG IRR ONE (08:19)
[2018-04-08] MEDS ORDERED: ROPIVACAINE HCL 150 MG/30 ML INJ ONE (08:44)
[2018-04-08] MEDS ORDERED: MAGNESIUM HYDROXIDE 30 ML UDCUP PO PRN (09:49)
[2018-04-08] MEDS ORDERED: METOCLOPRAMIDE 10 MG/2 ML VIAL IVP PRN (09:49)
[2018-04-08] MEDS ORDERED: PROMETHAZINE HCL 25 MG SUPPR PR PRN (09:49)
[2018-04-08] MEDS ORDERED: diphenhydrAMINE 25 MG CAP PO PRN (09:49)
[2018-04-08] MEDS ORDERED: POLYETHYLENE GLYCOL 3350 17 GM PKT PO PRN (09:49)
[2018-04-08] MEDS ORDERED: ONDANSETRON DISINTEGRATING 4 MG TAB PO PRN (09:49)
[2018-04-08] MEDS ORDERED: BISACODYL 10 MG SUPP PR PRN (09:49)
[2018-04-08] MEDS ORDERED: LACTULOSE 20 GM/30 ML UDCUP PO PRN (09:49)
[2018-04-08] MEDS ORDERED: DIPHENOXYLATE/ATROPINE LOMOTIL 1 TAB PO PRN (09:49)
--- NOTE | 2018-04-08 09:54 | POSTOPPROG ---
Post Op Note Date of Operation: 04/08/18 Surgeon: [facility] [employer] Drill Operator Helper: Glenda Post PA-C Anesthesiologist: Dr. Doe Anesthesia: Spinal Pre-op Diagnosis: left knee osteoarthritis Post-op Diagnosis: left knee osteoarthritis Indication: left knee pain Procedure: left TKA Inf/Abcess present in the surg proc area at time of surgery?: No EBL: 50-100 Complications: none
--- NOTE | 2018-04-08 09:56 | POSTANESTH ---
Post Anesthetic Evaluation Cardiovascular Status: Normal, Stable Respiratory Status: Normal, Stable Level of Consciousness/Mental Status: Can Participate in Eval, Alert and Oriented Pain Control: Adequate, Prn Tx Ordered Nausea/Vomiting Control: Adequate, Prn Tx Ordered Complications Possibly Related to Anesthesia: None Noted
--- NOTE | 2018-04-08 09:59 | SOAPPROG ---
SOAP Progress Note Assessment/Plan: Assessment/Plan: 72y/o female s/p left TKA - stable and doing well - orders as written - PT/OT - active care system; ASA starts tomorrow - post-op xrays pending - call with issues or concerns 04/08/18 09:55 Subjective: No pain, doing well Objective: Vital Signs Temp Pulse Resp BP Pulse Ox 36.9 C 70 18 105/71 92 04/08/18 06:06 04/08/18 07:08 04/08/18 07:08 04/08/18 07:08 04/08/18 07:08 NAD, well appearing, no distress, VSS EOMi, face symmetric some gross motor movement of LLE, wiggles toes on the right incision clean, dressed ICD10 Worksheet Patient Problems: Problems Problem Status Onset Pneumonia Acute Sepsis Acute
[2018-04-08] MEDS ORDERED: LR 1,000 ML IV SCH (10:00)
[2018-04-08] MEDS ORDERED: ZOLPIDEM TARTRATE 5 MG TAB PO PRN (10:00)
--- NOTE | 2018-04-08 11:05 | PDMN ---
Medical Necessity [place] [facility] [place], Total, A-2 days: 72 yo s/p L TKA. IP status per PA for advanced age, [place] and cares for ill also w/ advanced age. Will require at least 2 [place] inpt. PT/OT to eval. Pt w/ hx low BP, palpitations. [place] screen +.
--- NOTE | 2018-04-08 13:06 | GOP ---
[f rep st] OPERATIVE REPORT DATE OF OPERATION: 04/08/2018 SURGEON: Sana Haskins MD CLINICAL RESEARCH SPEC: Glenda Post, AMRIT. ANESTHESIA: Spinal with general. PREOPERATIVE DIAGNOSIS: Severe osteoarthritis, left knee. POSTOPERATIVE DIAGNOSIS: Severe osteoarthritis, left knee. PROCEDURE PERFORMED: Left total knee arthroplasty. FINDINGS: Preoperative x-rays of the patient's left knee demonstrated findings consistent with osteo arthritis of the knee. At the time of surgery, these findings were confirmed. The patient had compl ete loss of the articular cartilage in the lateral compartment. There was also loss of the articular cartilage in the patellofemoral joint. There was mild to moderate degenerative change in the medial compartment. At the time of surgery, a cemented total knee arthroplasty was performed using Beard a nd Nephew Journey II total knee components. The size 4 femoral component was cemented into place. T his was a posterior stabilized component. A size 3 tibial base plate was utilized on the tibial side and then a 9 mm thick cross-linked polyethylene insert was placed in the metal backing of the tibia. Following implantation of the components, the knee was taken through a range of motion and noted to be stable in extension and 30 degrees of flexion. The patient achieved full extension and 135 degre es of flexion on the table. The patella was resurfaced with a 38 mm round patellar button. This tra cked well in the trochlear groove. ESTIMATED BLOOD LOSS: Minimal. DESCRIPTION OF PROCEDURE: The patient was taken to the operating room, placed in a supine position o n the operating table. Following induction of adequate general inhalation anesthesia and placement o f a spinal block, the knee and leg were prepped and draped in the usual sterile manner. The patient received 2 g of IV Ancef. The leg was elevated and exsanguinated and the tourniquet inflated to 275 mmHg. A midline incision was made extending from 2 fingerbreadths above the superior pole of the pat danitza distally to the tibial tubercle. Incision was carried down through the subcutaneous tissue to t he retinaculum of the knee. The DeMayo leg cruz was used throughout the procedure for positioning of the knee. A medial parapatellar arthrotomy was then performed and the patella was everted lateral ly. The thickness of the patella was measured and then a 9 mm cut was taken from the posterior bustamante la. The cut surface was protected with a metal plate and the patella was placed in the lateral gutte r. The knee was then flexed up and the distal femoral drill hole was made. Intramedullary referenci ng was utilized for the distal femoral cut. A +2 cut was taken from the distal femur. Next, the fem ur was sized and a size 4 component was chosen as the best fit. The size 4 cutting block was placed on the distal femur and pinned and then the anterior, posterior, and chamfer cuts were made. The not ch was cleared with the reamer, followed by the box osteotome. Our attention was then turned to the tibia. The tibia was retracted anteriorly and again intramedullary referencing was used for placemen t of the tibial cutting block. The cutting block was positioned and pinned and then the cut was take n from the tibia. The knee was extended and the 9 mm lollipop fit well in the interval, both in exte nsion and flexion. The gaps were symmetrical. The tibia was then sized. A size 3 tibial component was chosen as the best fit and then it was pinned and a trial reduction was performed with the femora l component. A 9 mm thick polyethylene was inserted and excellent stability and range of motion was noted. The keel punch was then utilized on the tibia. The lamina lime spreader was inserted and the post erior capsule was released and the remnants of the meniscus were removed. The posterior capsule was injected with tranexamic acid and joint cocktail. The patella was then prepared with the drill and t he cement was mixed. All the bony surfaces were thoroughly irrigated and dried and then the tibial c omponent was cemented 1st, followed by the femoral component, and the patellar component. All excess cement was removed from around the edges of the components using curettes and Lawton elevator. Once the cement was hard, the trial polyethylene was removed and the 9 mm polyethylene was opened and inse rted. Again, the wound was thoroughly irrigated and then the retinaculum of the knee was closed usin g #2 FiberWire in a [id number] fashion. The subcutaneous tissues were closed using 2-0 Vicryl a nd the skin was closed using manas. Sterile dressings were applied. The patient tolerated the pro cedure well and there were no complications. Estimated blood loss minimal. Final sponge, needle cou nts were correct. The patient was transported to the recovery room in good condition. /[id number]/MODL
[2018-04-08] MEDS: CYCLOBENZAPRINE 10 MG TAB PO PRN (13:55)
[2018-04-08] MEDS: ACETAMINOPHEN 325 MG TAB PO SCH ×3 (13:56→23:34)
[2018-04-08] MEDS: ceFAZolin 2 GM/DEXTROSE 100 ML IV SCH ×2 (14:32→21:57)
[2018-04-08] MEDS: oxyCODONE IR 5 MG TAB PO PRN ×2 (17:21→22:05)
[2018-04-08] MEDS: FAMOTIDINE 20 MG TAB PO SCH (19:49)
[2018-04-08] MEDS: SENNOSIDES/DOCUSATE SODIUM TAB PO SCH (19:49)
[2018-04-08] MEDS: GABAPENTIN 300 MG CAP PO SCH (19:49)
[2018-04-09] MEDS: ACETAMINOPHEN 325 MG TAB PO SCH ×3 (06:30→17:20)
[2018-04-09] MEDS: FERROUS SULFATE 325 MG TAB PO SCH (09:36)
[2018-04-09] MEDS: oxyCODONE IR 5 MG TAB PO PRN ×4 (09:36→21:34)
[2018-04-09] MEDS: ASPIRIN 325 MG TAB PO SCH (09:36)
[2018-04-09] MEDS: FAMOTIDINE 20 MG TAB PO SCH ×2 (09:36→21:34)
[2018-04-09] MEDS: SENNOSIDES/DOCUSATE SODIUM TAB PO SCH ×2 (09:36→22:42)
--- NOTE | 2018-04-09 14:40 | ASMTCMCOM ---
CM Note CM Note Notes: Pt had a planned Left TKA. She lives in [place] with her who she is caregiver of. Her is with friends here in [place]. Today PT recommended she go to a SNF. Pt requests referrals to [facility]. CM will follow. Plan: Discharge to SNF Date Signed: 04/09/2018 02:40 PM Electronically Signed By:Triny Villavicencio
--- NOTE | 2018-04-09 14:51 | SOAPPROG ---
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 Doing well with walking. Objective: Vital Signs Temp Pulse Resp BP Pulse Ox 36.6 C 56 L 18 100/65 94 04/09/18 11:07 04/09/18 11:07 04/09/18 11:07 04/09/18 11:07 04/09/18 11:07 Laboratory Results 04/09/18 04:37 04/08/18 04/09/18 04/10/18 05:59 05:59 05:59 Intake Total 3539 Output Total 905 300 Balance 2634 -300 NAD, well appearing, no distress EOMi, face symmetric left knee with mild swelling extension full flexion 70 incision CDI, no erythema or active drainage new dressing placed in sterile fashion ICD10 Worksheet Patient Problems: Problems Problem Status Onset Pneumonia Acute Sepsis Acute
[2018-04-09] MEDS: GABAPENTIN 300 MG CAP PO SCH (21:34)
[2018-04-10] MEDS: ACETAMINOPHEN 325 MG TAB PO SCH ×5 (00:32→23:34)
[2018-04-10] MEDS: oxyCODONE IR 5 MG TAB PO PRN ×5 (00:32→23:34)
[2018-04-10] MEDS: ASPIRIN 325 MG TAB PO SCH (09:23)
[2018-04-10] MEDS: FERROUS SULFATE 325 MG TAB PO SCH (09:23)
[2018-04-10] MEDS: FAMOTIDINE 20 MG TAB PO SCH ×2 (09:23→21:51)
[2018-04-10] MEDS: SENNOSIDES/DOCUSATE SODIUM TAB PO SCH ×2 (09:24→21:50)
--- NOTE | 2018-04-10 14:19 | ASMTCMCOM ---
CM Note CM Note Notes: Pt chooses [facility] SNF, Shaina in [facility] admissons is alerted and states she will have a bed tomorrow. D/c plan of care: [facility] tomorrow Date Signed: 04/10/2018 02:18 PM Electronically Signed By:MORENA Kerns
--- NOTE | 2018-04-10 15:03 | SOAPPROG ---
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 Eating, drinking, voiding. Feeling good while walking Objective: Vital Signs Temp Pulse Resp BP Pulse Ox 36.6 C 62 17 107/66 93 04/10/18 08:00 04/10/18 08:00 04/10/18 08:00 04/10/18 08:00 04/10/18 08:00 Laboratory Results 04/10/18 04:30 04/09/18 04/10/18 04/11/18 05:59 05:59 05:59 Intake Total 3539 350 1000 Output Total 905 300 Balance 2634 50 1000 NAD, well appearing, no distress EOMi, face symmetric left knee extension near full, flexion 80 dressing clean, minimal spotting ICD10 Worksheet Patient Problems: Problems Problem Status Onset chronic disease mgmt/transitional care Acute Pneumonia Acute Sepsis Acute
[2018-04-10] MEDS: GABAPENTIN 300 MG CAP PO SCH (21:51)
[2018-04-11] MEDS: oxyCODONE IR 5 MG TAB PO PRN ×3 (03:02→12:39)
[2018-04-11] MEDS: CYCLOBENZAPRINE 10 MG TAB PO PRN (03:05)
[2018-04-11] MEDS: ACETAMINOPHEN 325 MG TAB PO SCH ×2 (05:36→13:49)
[2018-04-11 07:59] VITALS: BP 118/71
[2018-04-11] MEDS: ASPIRIN 325 MG TAB PO SCH (09:28)
[2018-04-11] MEDS: SENNOSIDES/DOCUSATE SODIUM TAB PO SCH (09:28)
[2018-04-11] MEDS: FAMOTIDINE 20 MG TAB PO SCH (09:28)
[2018-04-11] MEDS: FERROUS SULFATE 325 MG TAB PO SCH (09:29)
--- NOTE | 2018-04-11 10:10 | SOAPPROG ---
SOAP Progress Note Assessment/Plan: Assessment/Plan: 72y/o female s/p left TKA POD#3 - stable and doing well; had increased pain last night, improved with Oxycodone ; discussed staying on schedule of 5mg Oxycodone every 4 hours - orders as written - PT/OT, doing well - active care system; ASA - post-op xrays show good hardware placement - discharge to [facility] rehab today - call with issues or concerns 04/11/18 10:08 Subjective: Had increased pain last night. Improved with Oxycodone and Flexeril Objective: Vital Signs Temp Pulse Resp BP Pulse Ox 36.6 C 60 16 118/71 92 04/11/18 07:58 04/11/18 07:58 04/11/18 07:58 04/11/18 07:58 04/11/18 07:58 Laboratory Results 04/10/18 04:30 04/10/18 04/11/18 04/12/18 05:59 05:59 05:59 Intake Total 350 2450 Output Total 300 Balance 50 2450 NAD, well appearing, no distress EOMi, face symmetric extension full flexion 50, pain limited incision clean, dressed minimal swelling, no erythema ICD10 Worksheet Patient Problems: Problems Problem Status Onset chronic disease mgmt/transitional care Acute Pneumonia Acute Sepsis Acute
--- NOTE | 2018-04-11 10:25 | PDIAF ---
- Diagnosis Diagnosis: left knee osteoarthritis Code Status: Full Code - Medication Management Discharge Medications: electronically signed and located in the Home Medication List. PICC Care - Routine: N/A - Orders Services needed: Physical Therapy, Occupational Therapy Diet Recommendation: no restrictions on diet Blayne Stockings Discontinue Date: active care system Wound Care Instructions: keep incision clean and dry; cover for showering Sutures/[place] Site: manas will be removed at post-operative visit on 04/22 Activity/Weight Bearing Restrictions: WBAT Additional Instructions: - WBAT - no knee flexion beyond 90 degrees - keep incision clean and dry - follow-up on 04/22/[address] Haskins - call with any issues or concerns - Follow Up Care Current Providers and Referrals: Doctor Not,On Staff, MD [Primary Care Provider] -
--- NOTE | 2018-04-11 11:03 | ASMTLACE ---
LACE Length of stay for Answers: 4-6 days current admission Acuity / Level of Answers: Yes Care: Did the patient have an inpatient admission? Comorbidities - select Answers: Opioid dependence all that apply / Chronic pain # of Emergency department Answers: 0 visits in the last 6 months Score: 11 Date Signed: 04/11/2018 11:02 AM Electronically Signed By:MORENA Kerns
--- NOTE | 2018-04-11 11:40 | GDS ---
[f rep st] DISCHARGE SUMMARY ADMISSION DIAGNOSIS: Left knee severe osteoarthritis. DISCHARGE DIAGNOSIS: Left knee severe osteoarthritis. HOSPITAL COURSE: The patient is a pleasant 72-year-old female who is well known to our service for o ngoing left knee pain and severe osteoarthritis. After careful decision-making and discussion, she el ected to proceed forth with a left knee total arthroplasty. She tolerated the procedure well and was transferred to the PACU. After PACU criteria was met, she was transferred to the floor without compli cation. She worked with Physical Therapy and Occupational Therapy and continued to improve. She had a dequate pain control. DVT prevention was administered with aspirin as well as Active Care pump sets. 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 After careful decision-making and discussion with the PT and OT team as well as Jacob [facility] Management, she is ready for discharge to rehab facility on April 11, 2018. She was in good and stable condition at that time, and all of her questions were answered prior to discharge to [facility]. She will follow up on April 22, 2018, for postoperative visit. /[id number]/MODL
--- NOTE | 2018-04-11 15:04 | ASDISCHSUM ---
Discharge Information Plan Status:SNF Medically Cleared to Leave: Discharge Date:04/11/2018 02:32 PM CM D/C Disposition: ADT D/C Disposition:Other Rehab, Not [facility] Projected Discharge Date:04/11/2018 11:00 AM Transportation at D/C: Discharge Delay Reason: Follow-Up Date:04/11/2018 11:00 AM Discharge Slot: Final Diagnosis: Placement Information Referral Type:*Usp/SNF Referral ID:[id number] Provider Name:[facility] Address 1:[address] Address 2: City:[place] Selection Factors: State:[place] Patient Contact Information Contact Name:TIMIDUANE Relationship:Friend Address: Work Phone: City: [facility] [place] Phone: [facility]/Zip Code: Email: Financial Information Financial Class:Medicare Primary Plan Desc:MEDICARE INPATIENT Primary Plan Number:[id number] Secondary Plan Desc: OUT OF STATE [facility] Secondary Plan Number:[id number] Assessment Information LACE LACE Length of stay for Answers: 4-6 days current admission Acuity / Level of Answers: Yes Care: Did the patient have an inpatient admission? Comorbidities - select Answers: Opioid dependence all that apply / Chronic pain # of Emergency department Answers: 0 visits in the last 6 months Score: 11 Date Signed: 04/11/2018 11:02 AM Electronically Signed By:MORENA Kerns BLANCA JOHANNA Progress Note CM Autumn SPENCER Note Notes: Pt had a planned Left TKA. She lives in [place] with her who she is caregiver of. Her is with friends here in [place]. Today PT recommended she go to a SNF. Pt requests referrals to [facility], [facility]. CM will follow. Plan: Discharge to [facility] Date Signed: 04/09/2018 02:40 PM Electronically Signed By:Triny Villavicencio [facility] CM Progress Note CM Note CM Note Notes: Pt chooses [facility], Shaina in [facility] is alerted and states she will have a bed tomorrow. D/c plan of care: [facility] tomorrow Date Signed: 04/10/2018 02:18 PM Electronically Signed By:MORENA Kerns [facility] CM Progress Note CM Note CM Note Notes: Pt medically stable for d/c to [facility], orders sent in [employer]. Shaina with [facility] scheduled wc transport for 1430. ISMAEL [place] to call report. Date Signed: 04/11/2018 03:03 PM Electronically Signed By:MORENA Kerns Intervention Information Intervention Type:*Incorrect Registration Date of Service:04/08/2018 10:34 AM Patient Type:Observation Staff Member:Gila Siddiqui Hours: Discipline: Severity: Comment: Intervention Type:*IM-Signed Date of Service:04/11/2018 12:17 PM Patient Type:Inpatient Staff Member:Micheline Martínez Hours: Discipline: Severity: Comment:
== END 2018-04-11 14:32 | DRG 470 ==
LOC: F3N 05:42 → OBSVTOIN 09:53 → F3N 11:59
PROVIDERS: ADMIT Orthopaedic Surgery; ATTEND Orthopaedic Surgery
PROC: 0SRD0J9 Replacement of Left Knee Joint with Synthetic Substitute, Cemented, Open Approach (ICD-10-PCS; principal; 2018-04-08 07:15)
DX: M17.12 Unilateral primary osteoarthritis, left knee (principal); G47.30 Sleep apnea, unspecified; R00.2 Palpitations; J47.9 Bronchiectasis, uncomplicated; Z85.820 Personal history of malignant melanoma of skin
CPT/HCPCS: 97110-GP; 97116-GP; 97161-GP; 97165-GO; 97530-GP; 97535-GO; C1713; J0171; J0690; J1100; J1885; J2250; J2405; J2704; J2795